=== PATIENT | female | born 1980 | race Caucasian/White ===

== ENCOUNTER 2019-10-20 06:28 | Emergency (ER) | payer OTHER ==
[~2019-10-20] VITALS: Ht 167.6 cm; Wt 81.2 kg
[~2019-10-20 06:28] MED LIST: IBUPROFEN 600600 M1 PO; PERCOCET 10-321 EACH PO; PERCOCET 7.5-31 EACH PO
[2019-10-20] MEDS ORDERED: PERCOCET 5-3251 EACH PO (07:54)
[2019-10-20] MEDS ORDERED: BACTRIM DS TAB1 EACH PO (07:54)
[2019-10-20 08:00] VITALS: BP 133/82
== END 2019-10-20 08:02 | disposition home or self-care (01) ==
LOC: M.ERS 06:28
DX: L02.414 Cutaneous abscess of left upper limb (principal); L02.413 Cutaneous abscess of right upper limb; L02.415 Cutaneous abscess of right lower limb; M06.9 Rheumatoid arthritis, unspecified